=== PATIENT | male | born 1950 | race Caucasian/White ===

== ENCOUNTER 2020-10-11 07:22 | Outpatient (CLI) | payer MEDICARE ==
[2020-10-11 08:52] LABS: MICROSCOPIC NOT IND
[2020-10-11 08:58] LABS: BASOPHILS % (AUTO) 1 % (0-1); EOSINOPHILS % (AUTO) 3 % (1-7); LYMPHOCYTES % (AUTO) 42 % (22-44); MEAN CORPUSCULAR HGB CONC 33.7 g/dL (33.2-36.2); MEAN PLATELET VOLUME 9.8 fL (7.4-10.4); MONOCYTES % (AUTO) 7 % (2-9); NEUTROPHILS % (AUTO) 47 % (42-75); PLATELET COUNT 228 x10^3/uL (130-400); RED BLOOD COUNT 4.88 x10^6/uL (4.38-5.82); RED CELL DISTRIBUTION WIDTH 13.5 % (9.4-14.8)
[2020-10-11 09:01] LABS: ANION GAP 8 mmol/L (5-15); CALCIUM 9.1 mg/dL (8.5-10.1); CHLORIDE 111 mmol/L (98-107); CREATININE 0.88 mg/dL (0.7-1.3)
[2020-10-11 09:03] LABS: INTERNATIONAL NORMALIZED RATIO 1.02 (0.93-1.1); PROTHROMBIN TIME 10.9 Seconds (9.6-11.5)
[2020-10-11] MEDS ORDERED: CLOP75TA52 PO (11:01)
[2020-10-12] MEDS ORDERED: CHOL10003 PO (09:10)
[2020-10-12] MEDS ORDERED: PANT40TA6 PO (09:10)
[2020-10-12] MEDS ORDERED: MULT-449 PO (09:10)
[2020-10-12] MEDS ORDERED: ATOR40TA78 PO (09:10)
[2020-10-12] MEDS ORDERED: [UNRECOGNIZED DRUG - CODE] PO (09:10)
== END 2020-10-11 23:59 | disposition home or self-care (01) ==
LOC: STAR 07:22
PROVIDERS: ATTEND Urology
DX: Z01.818 Encounter for other preprocedural examination (principal); N32.9 Bladder disorder, unspecified; I25.2 Old myocardial infarction; Z20.822 Contact with and (suspected) exposure to COVID-19
CPT/HCPCS: 36415; 80048; 81003; 85025; 85610; 85730; 87086; 93005; U0003; U0005

== ENCOUNTER 2020-10-17 12:54 | Day surgery (SDC) | payer MEDICARE ==
[~2020-10-17] VITALS: Ht 175.3 cm; Wt 83.7 kg
[~2020-10-17 12:54] MED LIST: ATOR40TA78 PO; CHOL10003 PO; CLOP75TA52 PO; MULT-449 PO; PANT40TA6 PO; [UNRECOGNIZED DRUG - CODE] PO
[2020-10-17] MEDS ORDERED: LACTATED RINGERS 1,000 ML IV SCH (13:30)
[2020-10-17] MEDS ORDERED: CHLORHEXIDINE 15 ML UDC PO ONE (13:30)
[2020-10-17] MEDS ORDERED: GEMCITABINE HCL IV ONE (13:30)
[2020-10-17] MEDS ORDERED: CHLORHEXIDINE 15 ML UDC ONE (13:31)
[2020-10-17 13:44] VITALS: BP 126/79
[2020-10-17] MEDS ORDERED: FENTANYL PF 250 MCG/5ML ONE (14:39)
[2020-10-17] MEDS ORDERED: MIDAZOLAM 1 MG/ML, 2ML ONE (14:39)
[2020-10-17] MEDS ORDERED: HALOPERIDOL 5 MG/ML IV PRN (15:00)
[2020-10-17] MEDS ORDERED: FENTANYL PF 100 MCG/2ML IV PRN (15:00)
[2020-10-17] MEDS ORDERED: hydrALAzine 20 MG/ML, 1ML IV PRN (15:00)
[2020-10-17] MEDS ORDERED: LABETALOL 5MG/ML, 20ML IV PRN (15:00)
[2020-10-17] MEDS ORDERED: DIPHENHYDRAMINE 50 MG/ML, 1ML IVPush PRN (15:00)
[2020-10-17] MEDS ORDERED: OXYcodone 5 MG/5 ML ORAL.SOL UDC PO PRN (15:00)
[2020-10-17] MEDS ORDERED: HYDROmorphone 1 MG/ML, 1ML INJ IVPush PRN (15:00)
[2020-10-17] MEDS ORDERED: MEPERIDINE/PF 25MG/0.5ML IVPush PRN (15:00)
[2020-10-17] MEDS ORDERED: PROMETHAZINE 25 MG/ML, 1ML IVPush PRN (15:00)
[2020-10-17] MEDS ORDERED: ACETAMINOPHEN 325 MG TABLET PO PRN (15:00)
[2020-10-17] MEDS ORDERED: GEMCITABINE HCL 1,000 MG in SODIUM CHLORIDE 0.9% 23.7 ML IS ONE (15:30)
[2020-10-17] MEDS ORDERED: DEXAMETHASONE 4 MG/ML, 1ML ONE (15:45)
[2020-10-17] MEDS ORDERED: PROPOFOL 10 MG/ML, 20ML ONE (15:45)
[2020-10-17] MEDS ORDERED: ROCURONIUM 10MG/ML,5ML ONE (15:45)
[2020-10-17] MEDS ORDERED: SUCCINYLCHOLINE 20 MG/ML, 10ML ONE (15:45)
[2020-10-17] MEDS ORDERED: CEFAZOLIN 1,000 MG ONE (15:45)
[2020-10-17] MEDS ORDERED: GLYCOPYRROLATE 0.2MG/1ML, 5ML ONE (15:45)
[2020-10-17] MEDS ORDERED: ONDANSETRON 2MG/ML, 2ML ONE (15:45)
[2020-10-17] MEDS ORDERED: NEOSTIGMINE 1 MG/ML, 10ML ONE (15:45)
[2020-10-17] MEDS ORDERED: SUGAMMADEX 200 MG/2 ML IVPush ONE (15:46)
[2020-10-17] MEDS ORDERED: FENTANYL PF 100 MCG/2ML ONE (16:16)
== END 2020-10-17 20:09 | disposition home or self-care (01) ==
LOC: OUT 12:54
PROVIDERS: ATTEND Urology
DX: D49.4 Neoplasm of unspecified behavior of bladder (principal); C67.2 Malignant neoplasm of lateral wall of bladder; N32.3 Diverticulum of bladder; N39.0 Urinary tract infection, site not specified; N40.0 Benign prostatic hyperplasia without lower urinary tract symptoms; I25.10 Atherosclerotic heart disease of native coronary artery without angina pectoris; K21.9 Gastro-esophageal reflux disease without esophagitis; E78.5 Hyperlipidemia, unspecified; Z79.899 Other long term (current) drug therapy; Z95.1 Presence of aortocoronary bypass graft
CPT/HCPCS: 51720; 52235; 88305; J0330; J0690; J1100; J2250; J2405; J2704; J3010; J7120; J9201; J2710

== ENCOUNTER 2020-10-17 22:39 | Emergency (ER) | payer MEDICARE ==
[~2020-10-17] VITALS: Ht 176.5 cm; Wt 83.4 kg
[2020-10-17] MEDS ORDERED: LIDOCAINE 2%,20 ML JEL.PF.APP MM ONE (23:37)
[2020-10-18] MEDS ORDERED: LIDOCAINE 2%,20 ML JEL.PF.APP MM ONE
--- NOTE | 2020-10-18 00:13 | NUR ---
SUMMARY NOTE: PT. TO ROOM FROM [facility] AT 2330. DR. MATOS IN TO EVAL PT. AND DISCUSS POC WITH PT. AND . PT. HAD A CYSTOSCOPY AND BIOPSY DONE TODAY. DR. MATOS HAD SPOKE WIHT DR. RECIH AND NEW FOELY WAS TO BE PLACED. UPON ENTERY TO ROOM PT. CURIEL WAS REMOVED. ABOUT 100ML OF DARK BLOODY URINE NOTED. PT. HAD FREQUENT EPISODES OF BLOODY URINE COMING OUT FROM [facility]. PER DR. MATOS INSTRUCTIONS 20F CURIEL WAS PLACED AND WAS HAND IRRIGATED WITH 360 ML OF STERILE WATER. 1 LARGE CLOT NOTED ON FIRST FLUSH. DRAINAGE AFTER THAT BECAME PINK-TINGED AND NO FLOW OBSTRUCTION WAS NOTED. PT. VERBALIZED RELIEF FORM DISCOMFORT.
[2020-10-18 00:31] VITALS: BP 133/92
--- NOTE | 2020-10-18 01:14 | NUR ---
UPON ATTEMPTING TO D/C PT. AT APROXIMATELY 0030 PT. NOTED TO HAVE MORE DRAINAGE FROM AROUND [facility]. CATH FLUSHING WITH EASE UPON HAND IRRIGATION AND NO CLOTTING NOTED. 2CC OF STERILE WATER ADDED TO [place]. PT. AND EDUCATED THAT 12CC CONTAINED IN BALLOON AND VERBALIZED UNDERSTANDING. 360 MORE ML OF STERILE WATER USED FOR IRRIGATION. AGAIN; NO CLOTS NOTED. PT. NO LONGER HAVING DRAINAGE AROUND U[facility]. PT. AMBULATORY TO D/C DESK WITH AT THIS TIME.
== END 2020-10-18 01:17 | disposition home or self-care (01) ==
LOC: ED 10-18 01:13
DX: T83.091A Other mechanical complication of indwelling urethral catheter, initial encounter (principal); R31.0 Gross hematuria; I25.2 Old myocardial infarction; Z95.1 Presence of aortocoronary bypass graft; Y82.9 Unspecified medical devices associated with adverse incidents
CPT/HCPCS: 51702; 99284